=== PATIENT | female | born 1955 | race African-American/Black ===

== ENCOUNTER 2020-01-07 12:11 | Outpatient (REF) | payer MEDICARE, MEDICAID, SELFPAY ==
[2020-01-07 13:44] LABS: MANUAL DIFF FLAG NO
[2020-01-07 13:54] LABS: Basophils Percent Auto 0.5 % (0-2); Eosinophils Absolute Auto 0.3 X10*3/uL (0.0-0.4); Eosinophils Percent Auto 3.5 % (0-4); Hematocrit 39.5 % (37-47); Hemoglobin 11.8 g/dl (12.0-16.0); Imm Gran Abs Auto 0.02 X10*3/uL (0.00-0.03); Imm Gran Pct Auto 0.2 % (0.0-0.4); Mean Corpuscular HGB Conc 29.9 g/dl (31.0-35.0); Mean Corpuscular Volume 83.7 fL (80-98); Mean Platelet Volume 10.9 fL (9.4-12.3); Monocytes Absolute Auto 0.6 X10*3/uL (0.1-1.2); Monocytes Percent Auto 7.6 % (2-11); Neutrophils Absolute Auto 4.3 X10*3/uL (2.0-8.3); Neutrophils Percent Auto 52.2 % (45-73); Platelet Count 250 X10*3/uL (160-400); Red Blood Count 4.72 X10*6/uL (4.20-5.50); Red Cell Distribution Width 14.4 % (11.0-16.0); White Blood Count 8.3 X10*3/uL (4.8-10.8)
[2020-01-07 14:33] LABS: Alanine Aminotransferase 15 U/L (0-31); Albumin Level 4.3 g/dL (3.5-5.0); Alkaline Phosphatase 71 U/L (39-117); Anion Gap 9 (12-20); Aspartate Amino Transferase 17 U/L (5-31); Bilirubin Total 0.4 mg/dL (0.0-1.0); Blood Urea Nitrogen 10 mg/dL (9-16); Calcium 9.4 mg/dL (8.4-10.2); Carbon Dioxide 31 mmol/L (22-29); Chloride 104 mmol/L (96-108); Cholesterol 229 mg/dL; Estimated Glomerular Filt Rate > 60; Glucose Fasting 87 mg/dL (60-99); HDL Cholesterol 50 mg/dL; LDL Cholesterol Calculated 135 mg/dl; Potassium 4.1 mmol/l (3.3-5.1); Sodium 140 mmol/L (135-145); Total Protein 7.4 g/dL (6.5-8.0); Triglycerides 220 mg/dL
== END 2020-01-07 12:12 | disposition home or self-care (01) ==
LOC: HO.10HDL 12:11
PROVIDERS: Visit Provider Internal Medicine
DX: I10 Essential (primary) hypertension (principal); E78.00 Pure hypercholesterolemia, unspecified
CPT/HCPCS: 36415; 80053; 80061; 85025

== ENCOUNTER 2020-06-19 10:25 | Outpatient (REF) | payer MEDICARE, SELFPAY ==
[2020-06-19 14:31] LABS: Cholesterol 222 mg/dL; HDL Cholesterol 53 mg/dL; LDL Cholesterol Calculated 141 mg/dl; Triglycerides 143 mg/dL
== END 2020-06-19 10:26 | disposition home or self-care (01) ==
LOC: HO.10HDL 10:25
PROVIDERS: Visit Provider Internal Medicine
DX: I10 Essential (primary) hypertension (principal); E78.00 Pure hypercholesterolemia, unspecified
CPT/HCPCS: 36415; 80061

== ENCOUNTER 2020-10-05 09:28 | Outpatient (REF) | payer MEDICARE, SELFPAY ==
[2020-10-05 10:59] LABS: Anion Gap 12 (12-20); Blood Urea Nitrogen 12 mg/dL (9-16); Calcium 9.3 mg/dL (8.4-10.2); Carbon Dioxide 29 mmol/L (22-29); Chloride 105 mmol/L (96-108); Cholesterol 229 mg/dL; Estimated Glomerular Filt Rate > 60; Glucose Random 98 mg/dL (60-115); HDL Cholesterol 51 mg/dL; LDL Cholesterol Calculated 153 mg/dl; Potassium 4.4 mmol/L (3.3-5.1); Sodium 142 mmol/L (135-145); Triglycerides 126 mg/dL
== END 2020-10-05 09:29 | disposition home or self-care (01) ==
LOC: HO.10HDL 09:28
PROVIDERS: Visit Provider Internal Medicine
DX: E78.00 Pure hypercholesterolemia, unspecified (principal); N18.9 Chronic kidney disease, unspecified
CPT/HCPCS: 36415; 80048; 80061

== ENCOUNTER 2021-07-05 16:40 | Outpatient (REF) | payer MEDICARE, SELFPAY ==
--- NOTE | ~2021-07-05 | XR_ITS ---
EXAMINATION: XR CHEST CLINICAL INFORMATION: Cough COMPARISON: 11/19/2014 TECHNIQUE: 2 views of the chest were obtained. FINDINGS: Low lung volumes. Cardiomediastinal silhouette is unremarkable. Some areas of linear atelectasis without consolidation. No pleural effusion or pneumothorax. Exaggerated kyphotic curvature in the thoracic spine. No acute process. XR/XR chest 2V IMPRESSION: Low lung volumes. No acute cardiopulmonary process.
== END 2021-07-05 16:41 | disposition home or self-care (01) ==
LOC: HO.XRAY 16:40
PROVIDERS: PCP Internal Medicine; Visit Provider Internal Medicine
DX: I10 Essential (primary) hypertension (principal); R05.9 Cough, unspecified
CPT/HCPCS: 71046

== ENCOUNTER 2022-07-25 08:17 | Outpatient (REF) | payer MEDICARE, SELFPAY ==
[2022-07-25 10:38] LABS: Alanine Aminotransferase 18 U/L (0-31); Aspartate Amino Transferase 19 U/L (5-31); Cholesterol 243 mg/dL; HDL Cholesterol 54 mg/dL; LDL Cholesterol Calculated 166 mg/dl; Triglycerides 117 mg/dL
== END 2022-07-25 08:18 | disposition home or self-care (01) ==
LOC: HO.10HDL 08:17
PROVIDERS: Visit Provider Internal Medicine
DX: I10 Essential (primary) hypertension (principal); E78.00 Pure hypercholesterolemia, unspecified
CPT/HCPCS: 36415; 80061; 82550; 84450; 84460

== ENCOUNTER 2022-07-25 08:33 | Outpatient (REF) | payer MEDICARE, SELFPAY ==
--- NOTE | ~2022-07-25 | MM_ITS ---
EXAMINATION: MM SCREENING DIGITAL BREAST TOMOSYNTHESIS, BILATERAL CLINICAL INFORMATION: Screening. Asymptomatic. The lifetime risk of breast cancer based on the Tyrer-Cuzick Model is 4%. COMPARISON: Mammography: August 24, 2018 and studies dating back to May 05, 2012 TECHNIQUE: Digital breast tomosynthesis is performed in both the craniocaudal and mediolateral oblique views along with computer-aided detection (CAD). Synthesized 2D images are generated from the tomosynthesis. FINDINGS: There are scattered areas of fibroglandular density (ACR BI-RADS breast composition Category b). There are no significant masses, abnormal calcifications, or other abnormalities. MM/MM tomosynthesis screening BI IMPRESSION: No significant changes ASSESSMENT: BI-RADS 1: Negative RECOMMENDATION: Routine annual mammography screening. This patient's information was entered into a reminder system with a target due date for their next mammogram.
--- NOTE | ~2022-07-25 | MM_ITS ---
EXAMINATION: BONE DENSITOMETRY CLINICAL INDICATION: Menopause. COMPARISON: None (current study represents initial baseline exam). TECHNIQUE: Using a Pict DXA System (software version: 13.1) manufactured by [employer], dual-energy x-ray absorptiometry was performed of the lumbar spine and left hip. The images are of good technical quality. Summary results are attached. FINDINGS: AP SPINE L1-L4: BMD 1.300 g/cm2, Z-score 1.2, T-score 1.0, normal. LEFT FEMUR, NECK: BMD 1.195 g/cm2, Z-score 1.3, T-score 1.1, normal. LEFT FEMUR, TOTAL: BMD 1.289 g/cm2, Z-score 2.1, T-score 2.2, normal. IDENTIFIED RISK FACTORS: Menopause. HISTORY OF FRACTURE: None listed. MEDICATIONS: Multivitamin, vitamin D. MM/XR DEXA axial skeleton IMPRESSION: 1. DIAGNOSIS: Normal bone density based on the lowest T-score value of 1.0 in the lumbar spine applying World Health Organization criteria. 2. 10-YEAR FRACTURE RISK PREDICTION, FRAX: According to the guidelines, FRAX calculation should only be performed on patients in the osteopenia bone density category. Therefore, FRAX was not performed on this patient. 3. Treatment Recommendations: NOF guidelines recommend consideration for treatment in postmenopausal women and men age 50 and older presenting with the following: -A hip or vertebral (clinical or morphometric) fracture. -T-score less than or equal to -2.5 at the femoral neck or spine after appropriate evaluation to exclude secondary causes. -Low bone mass at the hip or spine and a 10-year fracture probability by FRAX of greater than or equal to 3% for hip fracture or greater than or equal to 20% for major osteoporotic fracture based on the [place] adapted WHO algorithm. 4. Other Recommendations: All treatment decisions require clinical judgment and consideration of individual patient factors, including patient preferences, comorbidities, previous drug use, risk factors not captured in the FRAX model (e.g. frailty, falls, vitamin D deficiency, increased bone turnover, interval significant decline in bone density) and possible under or overestimation of fracture risk by FRAX. FUTURE SCAN RECOMMENDATION: People with diagnosed cases of osteoporosis or at high risk for fracture should have regular bone mineral density tests. For patients eligible for Medicare, routine testing is allowed once every 2 years. The testing frequency can be increased to one year for patients who have rapidly progressing disease, those who are receiving or discontinuing medical therapy to restore bone mass, or have additional risk factors.
== END 2022-07-25 08:34 | disposition home or self-care (01) ==
LOC: HO.MAMMO 08:33
PROVIDERS: PCP Internal Medicine; Visit Provider Internal Medicine
DX: Z12.31 Encounter for screening mammogram for malignant neoplasm of breast (principal); Z13.820 Encounter for screening for osteoporosis; Z78.0 Asymptomatic menopausal state
CPT/HCPCS: 77063; 77067; 77080

== ENCOUNTER 2023-07-04 10:22 | Outpatient (REF) | payer MEDICARE, SELFPAY ==
[2023-07-04 12:20] LABS: Anion Gap 13 (12-20); Blood Urea Nitrogen 10 mg/dL (9-16); Calcium 9.6 mg/dL (8.4-10.2); Carbon Dioxide 27 mmol/L (22-29); Chloride 108 mmol/L (96-108); Estimated Glomerular Filt Rate > 60; Glucose Random 108 mg/dL (60-115); Potassium 4.1 mmol/L (3.3-5.1); Sodium 144 mmol/L (135-145)
== END 2023-07-04 10:23 | disposition home or self-care (01) ==
LOC: HO.10HDL 10:22
PROVIDERS: Visit Provider Internal Medicine
DX: I10 Essential (primary) hypertension (principal)
CPT/HCPCS: 36415; 80048

== ENCOUNTER 2024-03-05 10:14 | Outpatient (REF) | payer MEDICARE, SELFPAY ==
[2024-03-05 11:49] LABS: MANUAL DIFF FLAG NO
[2024-03-05 11:55] LABS: Basophils Percent Auto 0.5 % (0-2); Eosinophils Absolute Auto 0.3 X10*3/uL (0.0-0.4); Eosinophils Percent Auto 4.2 % (0-4); Hematocrit 38.4 % (37.0-47.0); Imm Gran Abs Auto 0.02 X10*3/uL (0.00-0.03); Imm Gran Pct Auto 0.3 % (0.0-0.4); Lymphocytes Absolute Auto 2.3 X10*3/uL (1.2-4.9); Lymphocytes Percent Auto 30.8 % (20-40); Mean Corpuscular HGB Conc 31.3 g/dl (31.0-35.0); Mean Corpuscular Hemoglobin 25.4 pg (27.0-33.0); Mean Corpuscular Volume 81.4 fL (80.0-98.0); Mean Platelet Volume 10.7 fL (9.4-12.3); Monocytes Absolute Auto 0.5 X10*3/uL (0.1-1.2); Monocytes Percent Auto 6.4 % (2-11); Neutrophils Absolute Auto 4.3 x10*3/uL (2.0-8.3); Neutrophils Percent Auto 57.8 % (45-73); Platelet Count 233 X10*3/uL (160-400); Red Blood Count 4.72 X10*6/uL (4.20-5.50); Red Cell Distribution Width 14.6 % (11.0-16.0); White Blood Count 7.4 X10*3/uL (4.8-10.8)
[2024-03-05 12:06] LABS: Estimated Average Glucose 134 mg/dL; Hemoglobin A1C 145.1446 umol/L; Hemoglobin A1c % 6.3 % (<6.0); Total Hemoglobin (HGBA1C) 3173.2332 umol/L
[2024-03-05 12:08] LABS: Albumin Level 4.4 g/dL (3.5-5.0); Anion Gap 11 (12-20); Aspartate Amino Transferase 21 U/L (5-31); Bilirubin Total 0.5 mg/dL (0.0-1.0); Blood Urea Nitrogen 11 mg/dL (9-16); Calcium 9.4 mg/dL (8.4-10.2); Carbon Dioxide 29 mmol/L (22-29); Chloride 106 mmol/L (96-108); Cholesterol 153 mg/dL (<200); Estimated Glomerular Filt Rate > 60; Glucose Fasting 114 mg/dL (60-99); HDL Cholesterol 51 mg/dL (>40); LDL Cholesterol Calculated 92 mg/dL (<100); Potassium 3.9 mmol/L (3.3-5.1); Sodium 142 mmol/L (135-145); Total Protein 7.6 g/dL (6.5-8.0); Triglycerides 52 mg/dL (<150)
[2024-03-05 12:23] LABS: Alanine Aminotransferase 19 U/L (0-31); Alkaline Phosphatase 73 U/L (39-117)
[2024-03-05 12:31] LABS: Vitamin D 25-OH Total 36.8 ng/mL (>30)
== END 2024-03-05 10:15 | disposition home or self-care (01) ==
LOC: HO.10HDL 10:14
PROVIDERS: Visit Provider Internal Medicine
DX: I10 Essential (primary) hypertension (principal); E78.00 Pure hypercholesterolemia, unspecified; R73.03 Prediabetes
CPT/HCPCS: 36415; 80053; 80061; 82306; 83036; 85025

== ENCOUNTER 2024-04-02 08:19 | Day surgery (SDC) | payer MEDICARE, SELFPAY ==
--- NOTE | 2024-04-01 10:55 | P.CONAN_ITS ---
Documented by User: Kandice Corona NP 04/01/24 10:56 HPI - Anesthesia Eval Consult details Narrative: 69yo F for Colonoscopy [facility] Past Medical History Medical History Renal calculi Elevated cholesterol HTN (hypertension) Surgical History Surgical History H/O colonoscopy Social History Social History Household Members: Spouse Patient Tobacco Use Status: Never used Tobacco Use of substances other than those prescribed or required for medical reasons: No Are you DNR?: No Advance Directives: No Advance Directives Information Provided: Yes Meds Allergies Allergy/AdvReac Type Severity Reaction Status Date / Time No Known Drug Allergies Allergy Unknown NONE Verified 04/02/24 09:09 [NO KNOWN DRUG ALLERGIES] Home Medications ?Medication ?Instructions ?Recorded ?Confirmed ?Last Taken ?Type atorvastatin 10 mg tablet 10 mg PO DAILY 03/31/24 04/02/24 Unknown History cholecalciferol (vitamin D3) 50 50 mcg PO DAILY 03/31/24 04/02/24 Unknown History mcg (2,000 unit) capsule (Vitamin D3) lisinopril 10 mg tablet 10 mg PO DAILY 03/31/24 04/02/24 04/02/24 07:45 History Exam Height,Weight and Vital Signs: Weight 85.729 kg Pertinent Lab Results Pertinent Lab Results: Laboratory Tests 03/05/24 10:20 WBC 7.4 Hgb 12.0 Hct 38.4 Plt Count 233 Sodium 142 Potassium 3.9 Chloride 106 Carbon Dioxide 29 BUN 11 Creatinine 0.81 Assessment and Plan Assessment Anesthesia Assessment: Chart Reviewed Documented by User: Shama Ch MD 04/02/24 10:34 [facility] Past Medical History Medical History Renal calculi Elevated cholesterol HTN (hypertension) Family History Family history of problems with anesthesia: No Surgical History Surgical History H/O colonoscopy History of Problems with Anesthesia: No Social History Social History Household Members: Spouse Patient Tobacco Use Status: Never used Tobacco Use of substances other than those prescribed or required for medical reasons: No Are you DNR?: No Advance Directives: No Advance Directives Information Provided: Yes Meds Allergies Allergy/AdvReac Type Severity Reaction Status Date / Time No Known Drug Allergies Allergy Unknown NONE Verified 04/02/24 09:09 [NO KNOWN DRUG ALLERGIES] Home Medications ?Medication ?Instructions ?Recorded ?Confirmed ?Last Taken ?Type atorvastatin 10 mg tablet 10 mg PO DAILY 03/31/24 04/02/24 Unknown History cholecalciferol (vitamin D3) 50 50 mcg PO DAILY 03/31/24 04/02/24 Unknown History mcg (2,000 unit) capsule (Vitamin D3) lisinopril 10 mg tablet 10 mg PO DAILY 03/31/24 04/02/24 04/02/24 07:45 History Exam Height,Weight and Vital Signs: Weight 85.729 kg Height 5 ft 3 in Weight 83.461 kg Vital Signs Temp Pulse Resp BP Pulse Ox O2 Del Method 04/02/24 09:17 98.4 F 76 16 158/75 H 97 Room Air Pertinent Lab Results Pertinent Lab Results: Laboratory Tests 03/05/24 10:20 WBC 7.4 Hgb 12.0 Hct 38.4 Plt Count 233 Sodium 142 Potassium 3.9 Chloride 106 Carbon Dioxide 29 BUN 11 Creatinine 0.81 Airway Mallampati Class: II TM Dist: >3cm Neck ROM: Full Partial: Upper Loose/Missing/Broken Teeth: Yes (Many missing teeth. Chipped top front tooth.Denies loose teeth) Heart: RRR Lungs: CTAB Assessment and Plan Assessment Anesthesia Assessment: Anesthesia Plan Discussed and Chart Reviewed Final Anesthetic Review Family History of Problems with Anesthesia: No History of Problems with Anesthesia: No NPO: Yes ASA Class: II Final Preanesthetic Review: No Changes in Pt Med Stat, Meds/Allgs Chart Reviewed, Consent Obtained/Reviewed and Anes Risks/Benef Reviewed Patient Risk: Low Procedure Risk: Low Assessment/Block/Sedation in SS: Assess/Block/Sedation-SS Anesthetic Plan Anesthetic Plan: TIVA Disposition: Standard PACU
[2024-04-02 09:10] VITALS: BMI 32.6
[2024-04-02 09:17] VITALS: BP 158/75; PULSE 76; RESP 16; TEMP 36.9; O2SAT 97
[2024-04-02] MEDS: Lactated Ringers 1,000 ML 100 ML IVCONT (09:43)
[2024-04-02 10:45] VITALS: BP 96/49; PULSE 66; RESP 18; TEMP 36.8; O2SAT 95
--- NOTE | 2024-04-02 10:45 | PM.OP ---
Brief Operative Note Date of Service: 04/02/24 Pre-op diagnosis: Screening Post-op diagnosis: other (Polyp) Procedure: Colonoscopy to the cecum and TI with cold snare polypectomy Surgeon: Marco Self MD Anesthesia: MAC Was an Collections Specialist used for this Procedure?: No Estimated blood loss (mL): 2.0 Pathology: none sent Condition: stable Disposition: PACU
[2024-04-02 11:00] VITALS: BP 109/52; PULSE 66; RESP 18; O2SAT 95
--- NOTE | 2024-04-02 11:14 | OP_ITS ---
DATE OF SERVICE: 04/02/2024 SURGEON: Marco Self MD INDICATIONS: The patient presents for evaluation of colorectal cancer screening. Full consent has been obtained from her for this, including risks of bleeding and perforation. PREOPERATIVE DIAGNOSIS: Colorectal cancer screening. POSTOPERATIVE DIAGNOSIS: PROCEDURE PERFORMED: Colonoscopy to the cecum and terminal ileum with cold snare polypectomy. ESTIMATED BLOOD LOSS: COMPLICATIONS: ANESTHESIA: Monitored anesthesia care. ASSISTANTS: SPECIMENS: POSTOPERATIVE DIAGNOSES: Colorectal cancer screening, small colon polyp, diverticulosis, and internal hemorrhoids. DESCRIPTION OF PROCEDURE: The patient was placed in the left lateral decubitus position. The digital rectal exam revealed no abnormalities. The Olympus video pediatric colonoscope was entered into the rectum and advanced easily to the cecum. Once in the cecum, I did identify normal-appearing cecal pouch with appendiceal orifice and a normal-appearing ileocecal valve. The terminal ileum was cannulated and appeared normal. The scope was withdrawn back in the colon. The entire cecum and ileocecal valve appeared normal. Scope was slowly withdrawn assessing all mucosal surfaces carefully. Preparation was excellent. In the ascending colon was an approximately 5 or 6 mm grossly adenomatous polyp, which was removed by cold snare polypectomy but not recovered. The polypectomy site appeared clean, without any sign of residual polyp nor significant bleeding. I did not visualize any other polyps, colitis, nor angiodysplasia. There was a mild amount of sigmoid diverticulosis. In the rectum, scope was retroflexed visualizing internal hemorrhoids but no other pathology. The rectal mucosa appeared normal. The scope was straightened and withdrawn from the patient. She tolerated the procedure well and was returned to the recovery area in stable condition. IMPRESSION: 1. Colon polyp. 2. Diverticulosis. 3. Internal hemorrhoids. PLAN: Although a specimen was not recovered for a pathology, I would recommend a repeat colonoscopy in 5 years based on the appearance of the polyp. She will otherwise see me on a p.r.n. basis. MD NIRAV Veras/LA / [id number]
== END 2024-04-02 11:54 | disposition home or self-care (01) ==
PROVIDERS: PCP Internal Medicine; Visit Provider Internal Medicine
PROC: 0DJD8ZZ Inspection of Lower Intestinal Tract, Via Natural or Artificial Opening Endoscopic (ICD-10-PCS; CPT 45378; principal; 2024-04-02 09:30)
DX: Z12.11 Encounter for screening for malignant neoplasm of colon (principal); D12.2 Benign neoplasm of ascending colon; K57.30 Diverticulosis of large intestine without perforation or abscess without bleeding; K64.8 Other hemorrhoids; I10 Essential (primary) hypertension; E78.5 Hyperlipidemia, unspecified; Z87.442 Personal history of urinary calculi; Z79.02 Long term (current) use of antithrombotics/antiplatelets; Z79.899 Other long term (current) drug therapy
CPT/HCPCS: 45385; J2003; J2704

== ENCOUNTER 2024-07-05 14:34 | Outpatient (AMB) | payer MEDICARE, SELFPAY ==
[2024-07-05 14:36] VITALS: BP 138/76; PULSE 74; TEMP 36.5; O2SAT 98; BMI 32.2
--- NOTE | 2024-07-05 14:36 | A.OFFPC_ITS ---
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 Accompanied by: Spouse Allergies No Known Drug Allergies [NO KNOWN DRUG ALLERGIES] Allergy (Unknown, Verified 07/05/24 15:37) NONE Medication List - Last Reconciled 07/05/24 by Herrera Mosley MD atorvastatin 10 mg PO DAILY cholecalciferol (vitamin D3) (Vitamin D3) 50 mcg PO DAILY hydrochlorothiazide 25 mg PO DAILY losartan 50 mg PO DAILY Tobacco use date assessed: 07/05/24 Fall risk assessment: No Falls in past year Last assessed Fall Risk: 07/05/24 Dental Screening Dental Screen Date: 07/05/24 Did you have a dental visit in the last 12 months?: Yes Did you have a dental problem in the last 6 months where you did not have access to dental care?: No HPI Routine HPI Details 69-year-old female presents to the offic e to discuss her chronic medical conditions. Patient gives history of hypertension. She has been reporting elevated blood pressures at home. They range between 170-160 systolic. Associated headaches and pain in the frontal area of the face. Patient currently takes lisinopril and would like the medication changed as she believes the medication is thinning or hair. No nausea or vomiting. Her niece recently had a cerebral bleed and the treating physician wanted her family members to be screened for cerebral aneurysm. [facility] Medical History Renal calculi Elevated cholesterol HTN (hypertension) Surgical History H/O colonoscopy (04/02/24) Family History Mother No problems noted. Father No problems noted. Social History Household Members: Spouse Housing: House Patient Tobacco Use Status: Former Tobacco user e-Cigarette/Vaping Use: Former Use service: No Current occupational status: employed Cognitive needs: No Hearing needs: No Vision needs: Yes (reading) Questionnaire PHQ-9 Over the last 2 weeks, how often have you been bothered by any of the following problems? 1. Little interest or pleasure in doing things: not at all 2. Feeling down, depressed, or hopeless: not at all 3. Trouble falling or staying asleep, or sleeping too much: not at all 4. Feeling tired or having little energy: not at all 5. Poor appetite or overeating: not at all 6. Feeling bad about yourself - or that you are a failure or have let yourself or your family down: not at all 7. Trouble concentrating on things, such as reading the newspaper or watching television: not at all 8. Moving or speaking so slowly that other people could have noticed. Or the opposite - being so fidgety or restless that you have been moving around a lot more than usual: not at all 9. Thoughts that you would be better off or of hurting yourself in some way: not at all Total score: 0 Depression Screening Interpretation: Negative Depression Screening Done: Yes Source: Developed by Drs. Marco Luna, Sue Siddiqui, Luis Chapman and colleagues, with an educational alejandro from [employer]. Thrive Questionnaire Date Thrive assessed: 07/05/24 I am a: Patient Within the past 12 months, did the food you bought not last and you didn't have the money to get more?: Never true Within the past 12 months, did you worry whether your food would run out before you got money to buy more?: Never true Do you have trouble paying for medicines?: No Do you have trouble getting transportation to medical appointments?: No Do you have trouble paying your heating and electricity bill?: No Do you have trouble taking care of your child, family member or friend?: No Do you have trouble with day-to-day activities such as bathing, preparing meals, shopping, managing finances, etc.?: No Are you currently unemployed and looking for a job?: No Are you interested in more education?: No Currently or been in a relationship where the following occur: No concerns reported THRIVE Score: 0 AUDIT C Alcohol Use Questionnaire (AUDIT-C) 1. How often do you have a drink containing alcohol?: Never 3. How often do you have six or more drinks on one occasion?: Never Total Score: 0 BRYSON-7 AMB Questionnaire BRYSON-7 Date BRYSON - 7 assessed: 07/05/24 Feeling nervous, anxious, or on edge: 0 = Not at all Not being able to stop or control worryin = Not at all Worrying too much about different things: 0 = Not at all Trouble relaxin = Not at all Being so restless that it is hard to sit still: 0 = Not at all Becoming easily annoyed or irritable: 0 = Not at all Feeling afraid as if something awful might happen: 0 = Not at all Total BRYSON-7 score (0-4 normal; 5-9 mild; 10-14 moderate; 15-21 severe): 0 Source: Developed by Drs. Marco Luna, Sue Siddiqui, Luis Chapman and colleagues, with an educational alejandro from [employer]. Physical exam (Primary Care) Vital Signs: Last Vital Signs Temp 97.7 F 07/05/24 14:36 Pulse 74 07/05/24 14:36 BP 138/76 07/05/24 14:36 Pulse Ox 98 07/05/24 14:36 Oxygen Delivery Method Room Air 07/05/24 14:36 Care Plan Goal for BP management: Blood pressure in range. BMI result Body Mass Index 32.2 BMI Assessment/Plan discussion: High Tobacco/Smoking Status: Tobacco use Status Tobacco use date assessed 07/05/24 07/05/24 14:38 Patient Tobacco Use Status Former Tobacco user 07/05/24 15:18 e-Cigarette/Vaping Use Former Use 07/05/24 15:18 PHQ-9: PHQ-9 Score PHQ-9: Total score 0 07/05/24 15:18 Depression Screening Interpretation: Negative Thrive Assessment: Date of Thrive Assessment Date Thrive assessed 07/05/24 07/05/24 14:38 Currently or been in a relationship where the following occur: No concerns reported Advance Care Planning discussion: Exists, not on file Date of discussion: 07/05/24 Who was present: Patient, Forms completed: Health Care Proxy Const General: cooperative and healthy appearing Nutritional Appearance: well nourished Orientation/consciousness: patient oriented x3 Limitations: no limitations HENMT Head: Yes normal to inspection Eyes General: appearance normal, both eyes and all related structures Neck Neck: Yes normal visual inspection Chest Chest palpation & inspection: normal palpation of entire chest wall Resp Effort & Inspection: normal respiratory effort Neuro General: patient oriented x3 Coding Level of Care Code New Pt Level 4 (77396) Complex EM visit Add On G2211 Diagnoses HTN (hypertension) I10 Elevated cholesterol E78.00 Aneurysm I72.9 Additional Codes Vital Signs *Quality* - Advance Care Planning discussion: Exists, not on file ([id number]) Assessment & Plan Assessment & Plan (1) HTN (hypertension): Code(s): I10 - Essential (primary) hypertension Category: Medical Plan: Blood pressure medications have been changed. Blood work has been ordered. Lisinopril has been discontinued. Combination of losartan and hydrochlorothiazide. (2) Elevated cholesterol: Code(s): E78.00 - Pure hypercholesterolemia, unspecified Category: Medical Plan: Fasting blood work has been ordered. (3) Aneurysm: Code(s): I72.9 - Aneurysm of unspecified site Plan: CT angiogram has been ordered. Orders: Orders Complete Blood Count no Diff Today E78.00 - Pure hypercholesterolemia, unspecified, I10 - Essential (primary) hypertension CT angio head Today I72.9 - Aneurysm of unspecified site Basic Metabolic Panel Today E78.00 - Pure hypercholesterolemia, unspecified, I10 - Essential (primary) hypertension Lipid Panel Today E78.00 - Pure hypercholesterolemia, unspecified, I10 - Essential (primary) hypertension Liver Panel Today E78.00 - Pure hypercholesterolemia, unspecified, I10 - Essential (primary) hypertension Thyroid Stimulating Hormone Today E78.00 - Pure hypercholesterolemia, unspecified, I10 - Essential (primary) hypertension UA and rflx microscopic Today E78.00 - Pure hypercholesterolemia, unspecified, I10 - Essential (primary) hypertension MM screening mammo BI Today Z12.31 - Encounter for screening mammogram for malignant neoplasm of breast Medications: New losartan 50 mg PO DAILY 90 tabs 1RF hydrochlorothiazide 25 mg PO DAILY 90 tabs 1RF
--- OUTSIDE RECORDS SUMMARY | 2024-07-05 16:57 | XMS_ITS | Patient Health Record ---
Author Organization [facility] Address [address] [place] [phone] Care Team Providers Care Senior Bioinformatics Specialist Name Role Phone Milton Esquivel MD Primary Care Provider Marco Bryant Unavailable [phone] Allergies No Known Allergies Reason For Referral No Information Medications Medication SIG (Take, Route, Frequency, Duration) Notes Start Date End Date Status Vitamin D 50 MCG (1999) 1 tablet Oral ly Once a day for 30 day(s) Active Atorvastatin Calcium 10 MG 1 tablet Oral ly Once a day for 30 day(s) Active Lisinopril 10 MG 1 tablet Orally Once a day for 30 day(s) Active Social History Tobacco Use: Social History Observation Description Date Details (start date - stop date) Never Smoker NA - NA Tobacco Use/Smoking Question Answer Notes Patient is a nonsmoker Alcohol Screen Question Answer Notes Did you have a drink containing alcohol in the p ast year? No Points 0 Interpretation Negative Section Notes: Nonsmoker; no sig alcohol From [place] originally Problems Problem Type SNOMED Code ICD Code Onset Dates Problem Status W/U Status Risk Notes Problem Colon cancer screening (145746216) Colon cancer screening (Z12.11) Active confirmed Problem Pre-procedure evaluation check (952485184) Encounter for other preprocedural examination (Z01.818) Active confirmed Problem Diverticular disease of colon (313848941) Diverticulosis of large intestine without perforation or abscess without bleeding (K57.30) Active confirmed Vital Signs Heart Rate 80 /min 12/02/2023 Temperature 98.6 degrees Fahrenheit 12/02/2023 Blood pressure diastolic 00 mm Hg 12/02/2023 Height 5 in 12/02/2023 Blood pressure systolic 00 mm Hg 12/02/2023 Weight 189 lbs 12/02/2023 BMI 5,314.68 kg/m2 12/02/2023 Encounters Encounter Location Date Provider Diagnosis [facility] [address] [place], [place] [id number] 04/02/2024 Marco Self Colon cancer screeni ng Z12.11 ; Colon polyps K63.5 ; Diverticulosis of large intestine without perforation or abscess without bleeding K57.30 and Other hemorrhoids K64.8 [facility] [address] [place] [phone] 12/02/2023 Marco Self Colon cancer screeni ng Z12.11 and Encounter for other preprocedural examination Z01.818 [facility] [address] [place] [phone] 12/08/2023 Marco Self [facility] [address] [place] [phone] 12/02/2023 Marco Self Assessments Encounter Date Diagnosis (ICD Code) Assessment Notes Treatment Notes Treatment Clinical Notes Section Notes 04/02/2024 Colon cancer screening (ICD-10 - Z12.11) 04/02/2024 Colon polyps (ICD-10 - K63.5) 12/02/2023 Colon cancer screening (ICD-10 - Z12.11) Overall, Tamiko appears quite well. Given her age, excellent clinical appearance, and her last colonoscopy being over 10 years ago, I did recommend a followup colonoscopy for further screening purposes. We did review the rationale for that regard to colon cancer prevention. Full consent was obtained for this, including risks of bleeding and perforation. The procedure will be done with monitored anesthesia care. Tamiko was very comfortable with this plan. Thank you again for allowing me to participate in Tamiko's care. I shall continue to keep you advised of her progress. 12/02/2023 Encounter for other preprocedural examination (ICD-10 - Z01.818) Overall, Tamiko appears quite well. Given her age, excellent clinical appearance, and her last colonoscopy being over 10 years ago, I did recommend a followup colonoscopy for further screening purposes. We did review the rationale for that regard to colon cancer prevention. Full consent was obtained for this, including risks of bleeding and perforation. The procedure will be done with monitored anesthesia care. Tamiko was very comfortable with this plan. Thank you again for allowing me to participate in Tamiko's care. I shall continue to keep you advised of her progress. 04/02/2024 Diverticulosis of large intestine without perforation or abscess without bleeding (ICD-10 - K57.30) 04/02/2024 Other hemorrhoids (ICD-10 - K64.8) Plan Of Treatment Future Test Test Name Order Date COLONOSCOPY 12/02/2023 Insurance Providers Payer Name Payer Address Payer Phone Subscriber Number Group Number Insured Name Patient Relationship to Insured Coverage Start Date Coverage End Date [facility] [address] [place] [phone] [id number] TAMIKO SERRANO Self - patient is the insured Medical (General) History Medical History History ICD Code Kidney stones Hypertension Negative screening colonoscopy > 10 year s ago Denies [place],DM,CVA,Lung disease,renal dise ase Hyperlipidemia Surgical History Surgery Date(Month/Year)
--- OUTSIDE RECORDS SUMMARY | 2024-07-05 16:57 | XMS_ITS ---
Author Organization [facility] Address [address] [place] [phone] Care Team Providers Care Discharge Planner Name Role Phone Milton Esquivel MD Primary Care Provider Marco Bryant [phone] Encounters Encounter Location Date Provider Diagnosis [facility] [address] [place] [phone] 12/02/2023 Marco Self Plan Of Treatment No Information Progress Notes * NADIRA SERRANODOB: (69 yo F)Acc No.[id number]:12/02/2023 Patient:?NADIRA SERRANO :1955???Age:68 Y???Sex:Female Address:[address] [place] [address], [address] Subjective: * Chief Complaints: * ??? * Medical History:? * Surgical History:? * Hospitalization/Major Diagno stic Procedure:? * Medications:? Objective: Assessment: Plan: * Treatment: * Procedure Codes:? * Preventive Medicine:? ??Urinary Incontinence:?Urinary Incontinence?Assessment:?Present,?Plan of care documented:?Yes,?Type of plan of care:?Addressing co-morbid factors.? * true * Date:? Generated for Annie canseco/Yosvany/eTvinaysmzach on:?07/05/2024 04:57 PM EDT
--- OUTSIDE RECORDS SUMMARY | 2024-07-05 16:57 | XMS_ITS | Clinical Summary ---
Author Organization [address] [place] [address] [place] [phone] Phone Care Team Providers Care Powerhouse Electrician Apprentice Name Role Phone Milton Esquivel MD Primary Care Provider [phone] Allergies No known active allergies Medications atorvastatin (LIPITOR) 10 mg tablet Take 1 tablet (10 mg total) by mouth 1 (one) time each day. 03/22/2024 Active lisinopriL (PRINIVIL,ZESTRI L) 10 mg tablet Take 1 tablet (10 mg total) by mouth 1 (one) time each day. 03/04/2024 Active Encounters Date Type Department Care Team Description 05/16/2024 2:00 PM EST Office Visit [facility] - [address] [phone] Bernardo Quesada PA Costochondritis (Primary Dx) from Last 3 Months Social History Tobacco Use Types Packs/Day Years Used Date Smoking Tobacco: Never Assessed Comments Unknown Sex and Gender Information Value Date Recorded Sex Assigned at Not on file Legal Sex Female 12:05 PM EST Gender Identity Not on file Sexual Orientation Not on file Last Filed Vital Signs Vital Sign Reading Time Taken Comments Blood Pressure 164/84 05/16/2024 2:21 PM EST Pulse 70 05/16/2024 2:00 PM EST Temperature 36.7 ??C (98 ??F) 05/16/2024 2:00 PM EST Respiratory Rate - - Oxygen Saturation 97% 05/16/2024 2:00 PM EST Inhaled Oxygen Concentration - - Weight - - Height - - Body Mass Index - - Plan of Treatment Health Maintenance Due Date Last Done Comments Breast Cancer Screening 1955 DTaP,Tdap,and Td Vaccines (1 - Tdap) 1974 Pneumococcal Vaccine: 50+ Years (1 of 1 - PCV) 2005 Zoster Vaccines (1 of 2) 2005 COVID-19 Vaccine (4 - 2023-2 5 season) 2023 02/22/2021, 07/09/2020, 06/16/2020 Colorectal Cancer Screening: Colonoscopy 05/16/2024 Depression Screening 05/16/2024 Falls Risk Assessment 05/16/2024 Hepatitis C Screening 05/16/2024 Medicare Annual Wellness Visit 05/16/2024 Osteoporosis Screening (Bone Density Screening) 05/16/2024 Social Influencers of Health Screening 05/16/2024 Influenza Vaccine (Season Ended) 2024 RSV Immunization Adult Patients (1 - 1-dose 75+ series) 2030 HIB Vaccines Aged Out No longer eligi ble based on patient's age to complete this topic HPV Vaccines Aged Out No longer eligi ble based on patient's age to complete this topic Hepatitis A Vaccines Aged Out No long er eligible based on patient's age to complete this topic Hepatitis B Vaccines Aged Out No long er eligible based on patient's age to complete this topic IPV Vaccines Aged Out No longer eligi ble based on patient's age to complete this topic MMR Vaccines Aged Out No longer eligi ble based on patient's age to complete this topic Meningococcal ACWY Vaccine Aged Out N o longer eligible based on patient's age to complete this topic Meningococcal B Vaccine Aged Out No l onger eligible based on patient's age to complete this topic RSV Immunization Patients Under 20 months Aged Out No longer eligible b ased on patient's age to complete this topic Varicella Vaccines Aged Out No longer eligible based on patient's age to complete this topic Procedures Procedure Name Priority Date/Time Associated Diagnosis Comments ECG 12-LEAD Routine 05/16/2024 3:01 PM EST Costochondritis from Last 3 Months Results * ECG 12 lead (05/16/2024 3:01 PM EST) us Bernardo BROWN ECG ORDERABLES Final Resu lt from Last [address] [address] MEDICARE ADVANTAGE Care Teams Powerhouse Electrician Apprentice Relationship Specialty Start Date End Date Milton Esquivel MD [address] [place] [address] Dr Coelho [address] [place] [address] MD PCP - General Internal Medicine 05/16/24
--- OUTSIDE RECORDS SUMMARY | 2024-07-05 16:57 | XMS_ITS | Clinical Summary ---
Author Organization [facility] Address [address] [place] [address] Care Team Providers Care Tar Worker Name Role Phone Unavailable Primary Care Provider Unavailabl e Source Comments PLEASE NOTE, if this patient is a minor, it may be UNLAWFUL to discuss sensitive information that is contained in these records (such as FAMILY PLANNING, MENTAL HEALTH or SUBSTANCE ABUSE) with the minor patient's parent or other person without the patient's specific authorization.[facility] Allergies No known active allergies Medications No known medications Active Problems No known active problems Social History Tobacco Use Types Packs/Day Years Used Date Smoking Tobacco: Never Smokeless Tobacco: Never Tobacco Cessation:Counseling Given: Not Answered Social Connections Answer Date Recorded Connectedness 0 12/08/2023 Financial Resource Strain Answer Date R ecorded Financial Resource Strain 0 2023 Stress Answer Date Recorded Stress 0 09/01/2023 Physical Activity Answer Date Recorded Physical Activity 0 09/01/2023 Food Insecurity Answer Date Recorded Food 0 12/18/2023 Transportation Needs Answer Date Record ed Transportation 0 09/01/2023 Housing Stability Answer Date Recorded Housing 0 09/01/2023 Safety and Environment Answer Date Rene rded Safety 0 09/01/2023 Utilities Answer Date Recorded Utilities 0 09/01/2023 Employment Answer Date Recorded Stress 0 12/08/2023 Comments Unknown Sex and Gender Information Value Date Recorded Sex Assigned at Not on file Legal Sex Female 7:48 AM PDT Gender Identity Not on file Sexual Orientation Not on file Last Filed Vital Signs Vital Sign Reading Time Taken Comments Blood Pressure 151/79 09/10/2023 2:22 PM EDT Pulse 82 09/10/2023 2:22 PM EDT Temperature - - Respiratory Rate - - Oxygen Saturation - - Inhaled Oxygen Concentration - - Weight - - Height - - Body Mass Index - - Plan of Treatment Health Maintenance Due Date Last Done Comments Diabetes Screening 1955 Hepatitis C Screening 1955 Lipid Screening 1955 Imm-DTaP/Tdap/Td (1 - Tdap) 1974 Breast Cancer Screening (Mammogram) 1995 CT Colonography 01/03/2000 Colonoscopy 01/03/2000 Colorectal Cancer Screening 01/03/2000 FIT/gFOBT 01/03/2000 Fecal DNA 01/03/2000 Flexible Sigmoidoscopy 01/03/2000 Imm-Pneumococcal 65+ (1 of 1 - PCV) 2005 Imm-Zoster, Recombinant (1 of 2) 2005 Bone Density Screening 01/03/2020 Falls Prevention 01/03/2020 [id number] (1 - season) 2023 Imm-Influenza (#1) 2023 Alcohol and Drug Screen 03/24/2024 Depression Annual Screen 03/24/2024 Tobacco Screening 09/04/2024 09/05/2023 Hypertension Screening (#1) 09/09/2024
--- OUTSIDE RECORDS SUMMARY | 2024-07-05 16:58 | XMS_ITS ---
Author Organization [facility] Address [address] [place] [phone] Care Team Providers Care Headliner Installer Name Role Phone Milton Esquivel MD Primary Care Provider Marco Bryant [phone] Encounters Encounter Location Date Provider Diagnosis [facility] [address] [place] [phone] 12/08/2023 Marco Self Plan Of Treatment No Information Progress Notes * NADIRA SERRANODOB: (69 yo F)Acc No.[id number]:12/08/2023 Patient:?NADIRA SERRANO :1955???Age:68 Y???Sex:Female Address:[address] [place] [address], [phone] Subjective: * Chief Complaints: * ??? * Medical History:? * Surgical History:? * Hospitalization/Major Diagno stic Procedure:? * Medications:? Objective: Assessment: Plan: * Treatment: * Procedure Codes:? * Preventive Medicine:? ??Urinary Incontinence:?Urinary Incontinence?Assessment:?Absent,?Plan of care documented:?No, reason not specified.? * true * Date:? Generated for Annie canseco/Yosvany/Carl on:?07/05/2024 04:57 PM EDT
--- OUTSIDE RECORDS SUMMARY | 2024-07-05 16:58 | XMS_ITS ---
Author Organization [facility] Address [address] [place] [phone] Care Team Providers Care Order Entry Administrator Name Role Phone Milton Esquivel MD Primary Care Provider Marco Bryant [phone] REASON FOR VISIT screening Problems Problem Type SNOMED Code ICD Code Onset Dates Problem Status W/U Status Risk Notes Problem Diverticular disease of colon (035340239) Diverticulosis of large intestine without perforation or abscess without bleeding (K57.30) Active confirmed Encounters Encounter Location Date Provider Diagnosis [facility] [address] [place] [phone] 04/02/2024 Marco Self Colon cancer scree lala [...] Notes * NADIRA SERRANODOB: (69 yo F)Acc No.[id number]:04/02/2024 COLON WITH MAC Patient:?NADIRA SERRANO Provider:?Marco Self MD :1955???Age:69 Y???Sex:Female D ate:04/02/2024 Address:[address] [place] [address] , [place], [phone] Pcp:Milton Esquivel MD Subjective: * Chief Complaints: * ???1. Screening. * Medical History:? Objective: * Vitals:? Assessment: * Assessment: 1.?Colon cancer screening - Z12.11 (Primary)???2.?Colon polyps - K63.5???3.?Diverticulosis of large intestine without perforation or abscess without bleeding - K57.30???4.?Other hemorrhoids - K64.8??? Plan: * Treatment: * Procedure Codes:?91491 LESIO N REMOVAL COLONOSCOPY, Modifiers: 33 * * The named appointment provid er may or may not be the originator of this progress note, and it is not deemed complete until electronically signed by the appointment provider. Sign off status: Pending * Provider:?Marco Self MD Date:? 025 Generated for Annie canseco/Yosvany/eTransmitting on:?07/05/2024 04:57 PM EDT
== END 2024-07-05 15:51 | disposition home or self-care (01) ==
LOC: HO.HMCHD 14:34
PROVIDERS: PCP Internal Medicine; Visit Provider Internal Medicine
DX: I10 Essential (primary) hypertension (principal); E78.00 Pure hypercholesterolemia, unspecified; I72.9 Aneurysm of unspecified site; Z00.00 Encounter for general adult medical examination without abnormal findings

== ENCOUNTER → 2024-07-05 14:34 | Outpatient (BNVA) | payer MEDICARE, SELFPAY | PROVIDERS: PCP Internal Medicine; Visit Provider Internal Medicine | DX: I10 Essential (primary) hypertension (principal); E78.00 Pure hypercholesterolemia, unspecified; I72.9 Aneurysm of unspecified site | CPT/HCPCS: 96127; 99202 ==

== ENCOUNTER 2024-08-18 14:17 | Outpatient (AMB) | payer MEDICARE, SELFPAY ==
--- NOTE | 2024-08-18 14:03 | MHC.PC.OV ---
Vital Signs 08/18/24 14:04 Height 5 ft 3 in Weight 178 lb BMI 31.5 BP 170/78 H Respiration 16 Pulse 73 Pulse Source Pulse Oximeter Temp 97.8 F Temp Source Temporal Artery Scan Pulse Oximetry (%) 99 Oxygen Delivery Method Room Air Intake Visit Reasons: 6 Week F/U - see comments Brake Lining Finisher Asbestos Required: No Accompanied by: Self / Same As Patient Allergies No Known Drug Allergies [NO KNOWN DRUG ALLERGIES] Allergy (Unknown, Verified 08/18/24 14:05) NONE Tobacco use date assessed: 08/18/24 Fall risk assessment: No Falls in past year Last assessed Fall Risk: 08/18/24 Dental Screening Dental Screen Date: 08/18/24 Did you have a dental visit in the last 12 months?: Yes Did you have a dental problem in the last 6 months where you did not have access to dental care?: No PFSH Medical History Renal calculi Elevated cholesterol HTN (hypertension) Surgical History H/O colonoscopy (04/02/24) Family History Mother No problems noted. Father No problems noted. Social History Household Members: Spouse Housing: House Patient Tobacco Use Status: Former Tobacco user e-Cigarette/Vaping Use: Former Use service: No Current occupational status: employed Cognitive needs: No Hearing needs: No Vision needs: Yes (reading) Questionnaire PHQ-9 Over the last 2 weeks, how often have you been bothered by any of the following problems? 1. Little interest or pleasure in doing things: not at all 2. Feeling down, depressed, or hopeless: not at all 3. Trouble falling or staying asleep, or sleeping too much: not at all 4. Feeling tired or having little energy: not at all 5. Poor appetite or overeating: not at all 6. Feeling bad about yourself - or that you are a failure or have let yourself or your family down: not at all 7. Trouble concentrating on things, such as reading the newspaper or watching television: not at all 8. Moving or speaking so slowly that other people could have noticed. Or the opposite - being so fidgety or restless that you have been moving around a lot more than usual: not at all 9. Thoughts that you would be better off or of hurting yourself in some way: not at all Total score: 0 Source: Developed by Drs. Marco Luna, Sue Siddiqui, Luis Chapman and colleagues, with an educational alejandro from [employer]. Thrive Questionnaire Date Thrive assessed: 08/18/24 I am a: Patient Within the past 12 months, did the food you bought not last and you didn't have the money to get more?: Never true Within the past 12 months, did you worry whether your food would run out before you got money to buy more?: Never true Do you have trouble paying for medicines?: No Do you have trouble getting transportation to medical appointments?: No Do you have trouble paying your heating and electricity bill?: No Do you have trouble taking care of your child, family member or friend?: No Do you have trouble with day-to-day activities such as bathing, preparing meals, shopping, managing finances, etc.?: No Are you currently unemployed and looking for a job?: No Are you interested in more education?: No THRIVE Score: 0 AUDIT C Alcohol Use Questionnaire (AUDIT-C) 1. How often do you have a drink containing alcohol?: Never 3. How often do you have six or more drinks on one occasion?: Never Total Score: 0 BRYSON-7 AMB Questionnaire BRYSON-7 Date BRYSON - 7 assessed: 08/18/24 Feeling nervous, anxious, or on edge: 0 = Not at all Not being able to stop or control worryin = Not at all Worrying too much about different things: 0 = Not at all Trouble relaxin = Not at all Being so restless that it is hard to sit still: 0 = Not at all Becoming easily annoyed or irritable: 0 = Not at all Feeling afraid as if something awful might happen: 0 = Not at all Total BRYSON-7 score (0-4 normal; 5-9 mild; 10-14 moderate; 15-21 severe): 0 Source: Developed by Drs. Marco L. CherylSue cuadra, Luis Chapman and colleagues, with an educational alejandro from [employer]. Physical exam (Primary Care) Vital Signs: Last Vital Signs Temp 97.8 F 08/18/24 14:04 Pulse 73 08/18/24 14:04 Resp 16 08/18/24 14:04 BP 170/78 H 08/18/24 14:04 Pulse Ox 99 08/18/24 14:04 Oxygen Delivery Method Room Air 08/18/24 14:04 BMI result Body Mass Index 31.5 Tobacco/Smoking Status: Tobacco use Status Tobacco use date assessed 08/18/24 08/18/24 14:06 Patient Tobacco Use Status Former Tobacco user 08/18/24 14:06 e-Cigarette/Vaping Use Former Use 08/18/24 14:06 PHQ-9: PHQ-9 Score PHQ-9: Total score 0 08/18/24 14:51 Thrive Assessment: Date of Thrive Assessment Date Thrive assessed 08/18/24 08/18/24 14:06 Coding Level of Care Code Est Pt Level 4 (00660) Complex EM visit Add On G2211 Diagnoses HTN (hypertension) I10 Assessment & Plan Assessment & Plan (1) HTN (hypertension): Code(s): I10 - Essential (primary) hypertension Category: Medical Plan: Losartan increased to 100 mg. Continue HCTZ at same dosage. Plan History of Present Illness - The patient is a 69-year-old female presenting with elevated blood pressure readings. - Blood pressure at home is usually around 137/76 mmHg, occasionally peaking at 150 mmHg. - During the visit, blood pressure was notably higher at 170/80 mmHg. - Regular self-monitoring occurs twice daily to detect diurnal variations. - Recent medication change from lisinopril to another antihypertensive, with no reported side effects. - Elevated readings during the visit may be due to situational stress. Social History Review of Systems - Cardiovascular: Reports occasional elevated blood pressure readings. - Neurological: Denies any symptoms related to elevated blood pressure, such as headaches or dizziness. Physical Exam General: Cooperative and healthy appearing Nutritional Appearance: Well nourished Orientation/consciousness: Patient oriented x3 Limitations: No limitations Head: Normal to inspection General: Appearance normal, both eyes and all related structures Neck: Normal visual inspection Chest: Normal palpation of entire chest wall Respiratory: Normal respiratory effort Neurology: Patient oriented x3 Results Plan 1. Essential Hypertension - Encourage regular home monitoring of blood pressure. - Continue prescribed antihypertensive medication. - Review medication effectiveness and adjust as needed. - Plan follow-up visit to assess blood pressure trends. - Consider lifestyle changes to aid blood pressure control. Discussion Notes I discussed with the patient her elevated blood pressure reading during today's visit, which was significantly higher than her typical home readings. We reviewed her current medication regimen and confirmed that she has transitioned from lisinopril to another antihypertensive medication, with no reported side effects. I emphasized the importance of regular home monitoring of blood pressure, especially due to the noted variations in readings. We also talked about the potential influence of situational stress on her blood pressure. I recommended continuing her current medication and considering lifestyle modifications such as dietary changes, increased physical activity, and stress management techniques. We agreed to schedule a follow-up appointment to reassess her blood pressure trends and medication efficacy. Patient Instructions - Continue taking your blood pressure medication as prescribed. - Monitor your blood pressure at home twice a day, in the morning and at night. - Record your blood pressure readings and bring them to your next appointment. - Try to reduce stress, as it may affect your blood pressure. - Follow a healthy diet and engage in regular physical activity. - Schedule a follow-up appointment to review your blood pressure readings. Medications: Changed From losartan 50 mg PO DAILY 90 tabs 1RF To losartan 100 mg (2 x 50 mg) PO DAILY 90 tabs 1RF
[2024-08-18 14:04] VITALS: BP 170/78; PULSE 73; RESP 16; TEMP 36.6; O2SAT 99; BMI 31.5
--- OUTSIDE RECORDS SUMMARY | 2024-08-18 15:12 | XMS_ITS | Clinical Summary ---
Author Organization [address] [place] [address] [place] [phone] Phone Care Team Providers Care Director Of Pupil Personnel Program Name Role Phone Milton Esquivel MD Primary Care Provider [phone] Allergies No known active allergies Medications atorvastatin (LIPITOR) 10 mg tablet Take 1 tablet (10 mg total) by mouth 1 (one) time each day. 03/22/2024 Active lisinopriL (PRINIVIL,ZESTRI L) 10 mg tablet Take 1 tablet (10 mg total) by mouth 1 (one) time each day. 03/04/2024 Active Social History Tobacco Use Types Packs/Day Years [...] Vaccines (1 of 2) 2005 COVID-19 Vaccine (2023-2 5 season) 2023 02/22/2021, 07/09/2020, 06/16/2020 Colorectal [...] on patient's age to complete this topic Insurance [employer] Care Teams Director Of Pupil Personnel Program Relationship Specialty Start Date End Date Milton Esquivel MD [address] [place] [address] Dr Federico MA PCP - General Internal Medicine 05/16/24
== END 2024-08-18 15:00 | disposition home or self-care (01) ==
LOC: HO.HMCHD 14:17
PROVIDERS: PCP Internal Medicine; Visit Provider Internal Medicine
DX: I10 Essential (primary) hypertension (principal)

== ENCOUNTER → 2024-08-18 14:17 | Outpatient (BNVA) | payer MEDICARE, SELFPAY | PROVIDERS: PCP Internal Medicine; Visit Provider Internal Medicine | DX: I10 Essential (primary) hypertension (principal); Z79.899 Other long term (current) drug therapy | CPT/HCPCS: 96127; 99212 ==

== ENCOUNTER 2024-09-01 14:51 | Outpatient (AMB) | payer MEDICARE, SELFPAY ==
--- NOTE | 2024-09-01 15:06 | MHC.PC.OV ---
Vital Signs 09/01/24 15:08 Height 5 ft 3 in Weight 176 lb BMI 31.2 BP 140/76 H Blood Pressure Location Rt brachial Pulse 78 Pulse Source Pulse Oximeter Temp 98.4 F Temp Source Axillary Pulse Oximetry (%) 98 Oxygen Delivery Method Room Air Intake Visit Reasons: 2 week f/u - see comments Accompanied by: Self / Same As Patient Allergies No Known Drug Allergies [NO KNOWN DRUG ALLERGIES] Allergy (Unknown, Verified 09/03/24 13:19) NONE Medication List - Last Reconciled 09/03/24 by Herrera Mosley MD ascorbic acid (vitamin C) mg PO atorvastatin 10 mg PO DAILY cholecalciferol (vitamin D3) (Vitamin D3) 50 mcg PO DAILY hydrochlorothiazide 25 mg PO DAILY losartan 100 mg (2 x 50 mg) PO DAILY omega 9-pst-xcv-fish oil 60-90-500 mg (Fish Oil) 1 cap PO DAILY Tobacco use date assessed: 09/01/24 Fall risk assessment: No Falls in past year Last assessed Fall Risk: 09/01/24 Dental Screening Dental Screen Date: 08/18/24 Did you have a dental visit in the last 12 months?: Yes Did you have a dental problem in the last 6 months where you did not have access to dental care?: No PFSH Medical History Renal calculi Elevated cholesterol HTN (hypertension) Surgical History H/O colonoscopy (04/02/24) Family History Mother No problems noted. Father No problems noted. Social History Household Members: Spouse Housing: House Patient Tobacco Use Status: Former Tobacco user e-Cigarette/Vaping Use: Former Use service: No Current occupational status: employed Cognitive needs: No Hearing needs: No Vision needs: Yes (reading) Questionnaire PHQ-9 Over the last 2 weeks, how often have you been bothered by any of the following problems? 1. Little interest or pleasure in doing things: not at all 2. Feeling down, depressed, or hopeless: not at all 3. Trouble falling or staying asleep, or sleeping too much: not at all 4. Feeling tired or having little energy: not at all 5. Poor appetite or overeating: not at all 6. Feeling bad about yourself - or that you are a failure or have let yourself or your family down: not at all 7. Trouble concentrating on things, such as reading the newspaper or watching television: not at all 8. Moving or speaking so slowly that other people could have noticed. Or the opposite - being so fidgety or restless that you have been moving around a lot more than usual: not at all 9. Thoughts that you would be better off or of hurting yourself in some way: not at all Total score: 0 Source: Developed by Drs. Marco Luna, Sue Siddiqui, Luis Chapman and colleagues, with an educational alejandro from [employer]. Thrive Questionnaire Date Thrive assessed: 09/01/24 I am a: Patient Within the past 12 months, did the food you bought not last and you didn't have the money to get more?: Never true Within the past 12 months, did you worry whether your food would run out before you got money to buy more?: Never true Do you have trouble paying for medicines?: No Do you have trouble getting transportation to medical appointments?: No Do you have trouble paying your heating and electricity bill?: No Do you have trouble taking care of your child, family member or friend?: No Do you have trouble with day-to-day activities such as bathing, preparing meals, shopping, managing finances, etc.?: No Are you currently unemployed and looking for a job?: No Are you interested in more education?: No THRIVE Score: 0 AUDIT C Alcohol Use Questionnaire (AUDIT-C) 1. How often do you have a drink containing alcohol?: Never 3. How often do you have six or more drinks on one occasion?: Never Total Score: 0 BRYSON-7 AMB Questionnaire BRYSON-7 Date BRYSON - 7 assessed: 09/01/24 Feeling nervous, anxious, or on edge: 0 = Not at all Not being able to stop or control worryin = Not at all Worrying too much about different things: 0 = Not at all Trouble relaxin = Not at all Being so restless that it is hard to sit still: 0 = Not at all Becoming easily annoyed or irritable: 0 = Not at all Feeling afraid as if something awful might happen: 0 = Not at all Total BRYSON-7 score (0-4 normal; 5-9 mild; 10-14 moderate; 15-21 severe): 0 Source: Developed by Drs. Marco Luna, Sue Siddiqui, Luis Chapman and colleagues, with an educational alejandro from [employer]. Physical exam (Primary Care) Vital Signs: Last Vital Signs Temp 98.4 F 09/01/24 15:08 Pulse 78 09/01/24 15:08 BP 140/76 H 09/01/24 15:08 Pulse Ox 98 09/01/24 15:08 Oxygen Delivery Method Room Air 09/01/24 15:08 BMI result Body Mass Index 31.2 BMI Assessment/Plan discussion: High Tobacco/Smoking Status: Tobacco use Status Tobacco use date assessed 09/01/24 09/01/24 15:14 Patient Tobacco Use Status Former Tobacco user 09/01/24 15:14 e-Cigarette/Vaping Use Former Use 09/01/24 15:14 PHQ-9: PHQ-9 Score PHQ-9: Total score 0 09/01/24 15:14 Thrive Assessment: Date of Thrive Assessment Date Thrive assessed 09/01/24 09/01/24 15:14 Coding Level of Care Code Est Pt Level 4 (22167) Complex EM visit Add On G2211 Diagnoses HTN (hypertension) I10 Assessment & Plan Assessment & Plan (1) HTN (hypertension): Code(s): I10 - Essential (primary) hypertension Category: Medical Plan: History of Present Illness - The patient is a 69-year-old female presenting with management of essential hypertension. - Patient reported a high blood pressure reading of 170/ [unrecorded], attributing the spike to dietary choices and stress. - Regular levels were around 130/ [unrecorded]. - The patient follows a strict diet but recently lapsed, eating peanut butter late at night. - Adherence to blood pressure medication regimen, specifically Hydrochlorothiazide, was confirmed. - Blood pressure control primarily through diuresis was discussed with the patient. Social History - The patient described dietary habits including adherence to a strict diet, but reported occasional lapses. Review of Systems - Cardiovascular: Reports variations in blood pressure readings. Physical Exam General: Cooperative and healthy appearing Nutritional Appearance: Well nourished Orientation/consciousness: Patient oriented x3 Limitations: No limitations Head: Normal to inspection General: Appearance normal, both eyes and all related structures Neck: Normal visual inspection Chest: Normal palpation of entire chest wall Respiratory: Normal respiratory effort Neurology: Patient oriented x3 Results Plan 1. Essential Hypertension - Continue Hydrochlorothiazide. - Routine blood pressure monitoring. - Emphasize dietary control. - Consider additional medication if elevated readings persist. - Re-evaluation in six months. Discussion Notes During our conversation, I addressed the patient's concerns about blood pressure fluctuations, emphasizing the importance of continued medication adherence and dietary management. We discussed that Hydrochlorothiazide contributes to blood pressure control through diuresis and advised continuing the current dosage. I cautioned the patient about the potential for increased stroke risk with uncontrolled blood pressure. A possible addition of a third medication was suggested should blood pressure remain uncontrolled. Follow-up for review and adjustment of the treatment plan was arranged within six months. Patient Instructions - Continue taking your prescribed blood pressure medicine every day. - Monitor your blood pressure regularly. - Stick to your diet plan and avoid eating late at night. - If your blood pressure gets high, reach out for additional guidance. - Follow up in six months for a check-up.
[2024-09-01 15:08] VITALS: BP 140/76; PULSE 78; TEMP 36.9; O2SAT 98; BMI 31.2
--- OUTSIDE RECORDS SUMMARY | 2024-09-01 17:04 | XMS_ITS | Clinical Summary ---
Author Organization [address] [place] [address] [place] [phone] Phone Care Team Providers Care Senior Escrow Officer Name Role Phone Milton Esquivel MD Primary Care Provider [phone] Allergies No known active allergies Medications atorvastatin [...] [employer] Care Teams Senior Escrow Officer Relationship Specialty Start Date End Date Milton Esquivel MD [address] [place] [address] Dr Federico MA PCP - General Internal Medicine 05/16/24
== END 2024-09-01 15:24 | disposition home or self-care (01) ==
LOC: HO.HMCHD 14:51
PROVIDERS: PCP Internal Medicine; Visit Provider Internal Medicine
DX: I10 Essential (primary) hypertension (principal)

== ENCOUNTER → 2024-09-01 14:51 | Outpatient (BNVA) | payer MEDICARE, SELFPAY | PROVIDERS: PCP Internal Medicine; Visit Provider Internal Medicine | DX: I10 Essential (primary) hypertension (principal) | CPT/HCPCS: 96127; 99212 ==

== ENCOUNTER 2024-10-14 12:47 | Outpatient (REF) | payer MEDICARE, SELFPAY ==
--- NOTE | ~2024-10-14 | CT_ITS ---
CLINICAL HISTORY: I72.9 - Aneurysm of unspecified site --- Additional Notes or Special Instructions: Family history of cerebral aneurysm CT angiography head with contrast. 3D Postprocessing. Comparison: None provided Findings: Intracranial arteries are patent. No aneurysm, dissection, hemodynamically significant stenoses, or occlusion. No abnormal intracranial enhancement. No intra-axial mass, midline shift, hydrocephalus, or acute hemorrhage. There is no acute fracture. IMPRESSION: Patent head CTA. This document has been electronically signed by: Emiliano Fofana MD on 10/16/2024 09:54:16
--- OUTSIDE RECORDS SUMMARY | 2024-10-14 13:01 | XMS_ITS | Clinical Summary ---
Author Organization [facility] Address [address] [place] [address] Care Team Providers Care Client Analyst Name Role Phone Unavailable Primary Care Provider [...] Mass Index - - Plan of Treatment Upcoming Encounters Date Type Department Care Team ([facility] st Contact Info) Description 11/11/2024 11:00 AM EDT Office Visit [facility] [address] [place] [phone] April Shi [address] [place] [address] Health Maintenance Due Date Last Done Comments Diabetes Screening 1955 Hepatitis C Screening 1955 Lipid Screening 1955 Tobacco Screening 1955 Imm-DTaP/Tdap/Td (1 - Tdap) 1974 Breast Cancer Screening (Mammogram) 1995 CT Colonography 01/03/2000 Colonoscopy 01/03/2000 Colorectal Cancer Screening 01/03/2000 FIT/gFOBT 01/03/2000 Fecal DNA 01/03/2000 Flexible Sigmoidoscopy 01/03/2000 Imm-Pneumococcal 50+ (1 of 1 - PCV) 2005 Imm-Zoster, Recombinant (1 of 2) 2005 Bone Density Screening 01/03/2020 Falls Prevention 01/03/2020 [id number] ( season) 2023 Alcohol and Drug Screen 03/24/2024 Depression Annual Screen 03/24/2024 Hypertension Screening (#1) 09/09/2024 Imm-Influenza (#1) 2024
--- OUTSIDE RECORDS SUMMARY | 2024-10-14 13:01 | XMS_ITS | Clinical Summary ---
Author Organization [address] [place] [address] [place] [phone] Phone Care Team Providers Care Retanner Name Role Phone Milton Esquivel MD Primary Care Provider [phone] Allergies No known active allergies Medications atorvastatin [...] 70 05/16/2024 2:00 PM EST Temperature 36.7 C (98 F) 05/16/2024 2:00 PM EST Respiratory Rate - [...] (2023-2 5 season) 2023 02/22/2021, 07/09/2020, 06/16/2020 Depression Screening 03/24/2024 Colorectal Cancer Screening: Colonoscopy 05/16/2024 Falls Risk Assessment 05/16/2024 Hepatitis C Screening 05/16/2024 Medicare Annual Wellness Visit 05/16/2024 Osteoporosis Screening (Bone Density Screening) 05/16/2024 Social Influencers of Health Screening 05/16/2024 Influenza Vaccine (#1) 2024 RSV Immunization Adult Patients (1 - [...] [employer] Care Teams Retanner Relationship Specialty Start Date End Date Milton Esquivel MD [address] [place] [address] Dr Federico MA PCP - General Internal Medicine 05/16/24
--- OUTSIDE RECORDS SUMMARY | 2024-10-14 13:01 | XMS_ITS | Patient Health Record ---
Author Organization [facility] Address [address] [place] [phone] Care Team Providers Care Manifest/Order Organizer Print Orders Name Role Phone Sierra (RETIRED) Milton ROSENTHAL Primary Care Provide r Marco Lane Unavailable [phone] Allergies No Known Allergies Reason For Referral [...] Section Notes: Nonsmoker; no sig alcohol From [place] originally Problems Problem Type SNOMED Code ICD Code Onset Dates Problem Status W/U Status Risk Notes Problem Colon cancer screening (321198369) Colon cancer screening (Z12.11) Active confirmed Problem Pre-procedure evaluation check (625236408) Encounter for other preprocedural examination (Z01.818) Active confirmed Problem Diverticular disease of colon (434048296) Diverticulosis of large intestine without perforation or abscess without bleeding (K57.30) Active confirmed Vital Signs Heart Rate 80 /min 12/02/2023 Temperature 98.6 degrees Fahrenheit 12/02/2023 Blood pressure diastolic 00 mm Hg 12/02/2023 Height 5 in 12/02/2023 Blood pressure systolic 00 mm Hg 12/02/2023 Weight 189 lbs 12/02/2023 BMI 5,314.68 kg/m2 12/02/2023 Encounters Encounter Location Date Provider Diagnosis [facility] Outpatient [address] [place] [id number] 04/02/2024 Marco Self Colon cancer screeni ng Z12.11 ; Colon polyps K63.5 ; Diverticulosis of large intestine without perforation or abscess without bleeding K57.30 and Other hemorrhoids K64.8 [facility] [address] [place] [phone] 12/02/2023 Marco Self Colon cancer screeni ng Z12.11 and Encounter for other preprocedural examination Z01.818 [facility] [address] [place] [phone] 12/08/2023 Marco Self [facility] [address] [place] [phone] 12/02/2023 Marco Self Assessments Encounter Date Diagnosis [...] Insured Coverage Start Date Coverage End Date [facility] [address] [place] [phone] [id number] TAMIKO SERRANO Self - patient is the insured Medical (General) History Medical History History ICD Code Kidney stones Hypertension Negative screening colonoscopy > 10 year s ago Denies [place],DM,CVA,Lung disease,renal dise ase Hyperlipidemia Surgical History Surgery Date(Month/Year)
[2024-10-14 13:34] LABS: Hematocrit 36.7 % (37.0-47.0); Hemoglobin 11.6 g/dl (12.0-16.0); Mean Corpuscular HGB Conc 31.6 g/dl (31.0-35.0); Mean Corpuscular Hemoglobin 25.7 pg (27.0-33.0); Mean Corpuscular Volume 81.4 fL (80.0-98.0); NRBC Abs Auto 0.000 X10*3/uL (0.0-0.012); NRBC Pct Auto 0.0 /100WBC (0.0-0.2); Platelet Count 213 X10*3/uL (160-400); Red Blood Count 4.51 X10*6/uL (4.20-5.50); White Blood Count 7.0 X10*3/uL (4.8-10.8)
[2024-10-14 13:49] LABS: Appearance Urine Clear; Glucose Urine UA Negative (Negative); PH 5.5 (5.0-9.0); Specific Gravity - Urine 1.025 (1.005-1.025); UMIC TRIGGER UA YES
[2024-10-14 14:10] LABS: Alanine Aminotransferase 15 U/L (0-31); Albumin Level 4.6 g/dL (3.5-5.0); Alkaline Phosphatase 76 U/L (39-117); Anion Gap 13 (12-20); Aspartate Amino Transferase 19 U/L (5-31); Blood Urea Nitrogen 14 mg/dL (9-16); Calcium 9.5 mg/dL (8.4-10.2); Carbon Dioxide 29 mmol/L (22-29); Chloride 106 mmol/L (96-108); Cholesterol 155 mg/dL (<200); Estimated Glomerular Filt Rate > 60; HDL Cholesterol 49 mg/dL (>40); Potassium 3.6 mmol/L (3.3-5.1); Sodium 144 mmol/L (135-145); Total Protein 7.6 g/dL (6.5-8.0); Triglycerides 86 mg/dL (<150)
[2024-10-14 14:24] LABS: Thyroid Stimulating Hormone 1.27 uIU/mL (0.32-4.0)
[2024-10-14] MEDS: iohexoL 350 MG/ML 100 ML INFUS..BTL 75 ML IV (15:39)
[2024-10-15 14:53] LABS: Creatinine POC 0.9 mg/dL (0.5-1.4); GFR POC > 60
== END 2024-10-14 12:48 | disposition home or self-care (01) ==
LOC: HO.CT 12:47
PROVIDERS: PCP Internal Medicine; Visit Provider Internal Medicine
DX: Z12.31 Encounter for screening mammogram for malignant neoplasm of breast (principal); I10 Essential (primary) hypertension; E78.00 Pure hypercholesterolemia, unspecified; I72.9 Aneurysm of unspecified site
CPT/HCPCS: 36415; 70496; 77063; 77067; 80048; 80061; 80076; 81001; 82565; 84443; 85027; Q9967

== ENCOUNTER → 2024-10-14 13:02 | Outpatient (BNV) | payer MEDICARE, SELFPAY | PROVIDERS: PCP Internal Medicine; Visit Provider Specialist | DX: I72.9 Aneurysm of unspecified site (principal) | CPT/HCPCS: 70496 ==

== ENCOUNTER 2025-03-02 15:28 | Outpatient (AMB) | payer MEDICARE, SELFPAY ==
--- OUTSIDE RECORDS SUMMARY | 2024-04-02 04:30 | XMS_ITS ---
Author Organization [facility] Address [address] [place] [id number] Care Team Providers Care Cnc Machine Setter Name Role Phone Sierra (RETIRED) Milton ROSENTHAL Primary Care Provide r Marco Lane Unavailable [phone] REASON FOR VISIT screening Problems Problem Type SNOMED Code ICD Code Onset Dates Problem Status W/U Status Risk Notes Problem Diverticular disease of colon (687697706) Diverticulosis of large intestine without perforation or abscess without bleeding (K57.30) Active confirmed Encounters Encounter Location Date Provider Diagnosis [facility] Out[facility] [address] [place] [phone] 04/02/2024 Marco Self Colon cancer scree lala Z12.11 ; Colon polyps K63.5 ; Diverticulosis of large intestine without perforation or abscess without bleeding K57.30 and Other hemorrhoids K64.8 Assessments Encounter Date Diagnosis (ICD Code) Assessment Notes Treatment Notes Treatment Clinical Notes Section Notes 04/02/2024 Colon cancer screening (ICD-10 - Z12.11) 04/02/2024 Colon polyps (ICD-10 - K63.5) 04/02/2024 Diverticulosis of large intestine without perforation or abscess without bleeding (ICD-10 - K57.30) 04/02/2024 Other hemorrhoids (ICD-10 - K64.8) Plan Of Treatment No Information Progress Notes * NADIRA SERRANODOB: (70 yo F)Acc No.[id number]:04/02/2024 COLON WITH MAC Patient: Robert BAINADIRA FRASER Provider: Mariana Self MD :1955 A ge:69 Y S ex:Female Date:04/02/2024 Address:[address] [place] [address] , [place], [place] Pcp:Milton Esquivel (RETIRED )MD Subjective: * Chief Complaints: * S creening Assessment: * Assessment: 1. C olon cancer screening - Z12.11 (Primary) 2 . C olon polyps - K63.5? 3. D iverticulosis of large intestine without perforation or abscess without bleeding - K57.30 4 . O ther hemorrhoids - K64.8 Plan: * Procedure Codes: 4 5385 LESION REMOVAL COLONOSCOPY, Modifiers: 33 Billing Information: * Procedure Codes: 06551 LESION REMOVAL COLONOSCOPY. Modifiers: 33 * The named appointment provid er may or may not be the originator of this progress note, and it is not deemed complete until electronically signed by the appointment provider. Sign off status: Pending * Provider: Mariana Self MD Date: 0 04/02/2024 Generated for Annie canseco/[email or web address]/Meetasmitting on: 1 05/04/2024 12:07 AM EST
--- NOTE | 2025-03-02 15:34 | A.OFFPC_ITS ---
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 Accompanied by: Self / Same As Patient Allergies No Known Drug Allergies (NO KNOWN DRUG ALLERGIES) Allergy (Unknown, Verified 03/02/25 15:35) NONE Medication List - Last Reconciled 03/02/25 by STEPHANIE Lindsey ascorbic acid (vitamin C) mg PO atorvastatin 10 mg PO DAILY cholecalciferol (vitamin D3) (Vitamin D3) 50 mcg PO DAILY hydrochlorothiazide 25 mg PO DAILY 90 days levocetirizine 5 mg PO DAILY losartan 100 mg PO DAILY omega 2-miw-ayt-fish oil 60-90-500 mg (Fish Oil) 1 cap PO DAILY Tobacco use date assessed: 03/02/25 Fall risk assessment: No Falls in past year Last assessed Fall Risk: 03/02/25 Dental Screening Dental Screen Date: 03/02/25 Did you have a dental visit in the last 12 months?: Yes Did you have a dental problem in the last 6 months where you did not have access to dental care?: No HPI HPI Comments History of Present Illness Details History of Present Illness The patient is a 70 year old female with HLD, HTN and low vitamin D presenting with halitosis and chronic mucus production. She has no dental cavities but reports a persistent odor, which her stepdaughter suggested might be due to a sour stomach. The patient has a history of acid reflux, but it has not been bothersome for a long time. She is constantly bringing up mucus, which she clears from her throat without coughing. This occurs almost every morning; the mucus is sometimes white and thick like saliva, and other times has a slight discoloration. The patient also reports a history of nasal passage closure, for which she was previously prescribed Flonase but stopped using it due to concerns about dependency. Her breathing is currently not bad. For the past couple of days, she has noticed a slight throbbing pressure over her sinuses. She sometimes uses Vicks VapoRub on her chest and nostrils or inhales it with steam for relief. Her chronic conditions include hypertension, managed with hydrochlorothiazide and losartan. Her BP today was 136/74. She has hyperlipidemia, treated with atorvastatin. She also takes fish oil, vitamin C, and vitamin D. Blood work from September showed a long-standing slight anemia. She has a history of glaucoma and is monitored annually, with her condition described as stable. Her preventative screenings, including a mammogram in September and a prior colonoscopy, are up to date. Medical History: - Hypertension - Hyperlipidemia - Anemia, chronic - Gastroesophageal reflux disease, resol alexis - Glaucoma - Allergic rhinitis Medications: - Atorvastatin - Fish oil - Vitamin C - Vitamin D - Hydrochlorothiazide for hypertension - Losartan for hypertension - Flonase, as needed for nasal congestio n, not currently using Health Maintenance The patient is up-to-date with her mammogram and colonoscopy. I will schedule a follow-up appointment in three months to reassess her symptoms and for general follow-up Results - Blood work (September): Revealed a slight a nemia, which is a chronic finding. - Mammogram (September): Normal. - Colonoscopy: Last result was normal, n ext one due in 2029. Patient was informed and verbally consented to the use of an ambient scribe for clinic note documentation during this visit. [facility] Medical History (Updated 03/02/25 @ 17:46 by STEPHANIE Lindsey) Allergic rhinitis Elevated cholesterol HTN (hypertension) Renal calculi Surgical History H/O colonoscopy (04/02/24) Family History (Updated 03/02/25 @ 15:48 by Kathleen Bower MA) Mother No problems noted. Father No problems noted. Father No problems noted. Social History Household Members: Spouse Housing: House Patient Tobacco Use Status: Former Tobacco user e-Cigarette/Vaping Use: Former Use service: No Current occupational status: employed Cognitive needs: No Hearing needs: No Vision needs: Yes (reading) Questionnaire PHQ-9 Over the last 2 weeks, how often have you been bothered by any of the following problems? 1. Little interest or pleasure in doing things: not at all 2. Feeling down, depressed, or hopeless: not at all 3. Trouble falling or staying asleep, or sleeping too much: not at all 4. Feeling tired or having little energy: not at all 5. Poor appetite or overeating: not at all 6. Feeling bad about yourself - or that you are a failure or have let yourself or your family down: not at all 7. Trouble concentrating on things, such as reading the newspaper or watching television: not at all 8. Moving or speaking so slowly that other people could have noticed. Or the opposite - being so fidgety or restless that you have been moving around a lot more than usual: not at all 9. Thoughts that you would be better off or of hurting yourself in some way: not at all Total score: 0 Depression Screening Interpretation: Negative Depression Screening Done: Yes Source: Developed by Drs. Marco Luna, Sue Siddiqui, Luis Chapman and colleagues, with an educational alejandro from [employer]. Thrive Questionnaire Date Thrive assessed: 03/02/25 I am a: Patient Within the past 12 months, did the food you bought not last and you didn't have the money to get more?: Never true Within the past 12 months, did you worry whether your food would run out before you got money to buy more?: Never true Do you have trouble paying for medicines?: No Do you have trouble getting transportation to medical appointments?: No Do you have trouble paying your heating and electricity bill?: No Do you have trouble taking care of your child, family member or friend?: No Do you have trouble with day-to-day activities such as bathing, preparing meals, shopping, managing finances, etc.?: No Are you currently unemployed and looking for a job?: No Are you interested in more education?: No THRIVE Score: 0 AUDIT C Alcohol Use Questionnaire (AUDIT-C) 1. How often do you have a drink containing alcohol?: Never 3. How often do you have six or more drinks on one occasion?: Never Total Score: 0 BRYSON-7 AMB Questionnaire BRYSON-7 Date BRYSON - 7 assessed: 03/02/25 Feeling nervous, anxious, or on edge: 0 = Not at all Not being able to stop or control worryin = Not at all Worrying too much about different things: 0 = Not at all Trouble relaxin = Not at all Being so restless that it is hard to sit still: 0 = Not at all Becoming easily annoyed or irritable: 0 = Not at all Feeling afraid as if something awful might happen: 0 = Not at all Total BRYSON-7 score (0-4 normal; 5-9 mild; 10-14 moderate; 15-21 severe): 0 Source: Developed by Drs. Marco Luna, Sue Siddiqui, Luis Chapman and colleagues, with an educational alejandro from [employer]. Review of Systems Narrative Review of Systems - GENERAL: Denies fever, chills. - EYES: Denies vision problems. - EARS: Denies hearing problems. - NOSE: Reports history of nasal passage closure and recent slight facial pressure. - MOUTH/THROAT: Reports bad breath and constant production of mucus which she clears from her throat. - CARDIOVASCULAR: Denies chest pain and palpitations. - RESPIRATORY: Reports clearing mucus from throat without coughing. Denies significant breathing issues. - GASTROINTESTINAL: Reports history of acid reflux, which is not currently active. Denies constipation or diarrhea. Physical exam (Primary Care) Vital Signs: Last Vital Signs Temp 97.6 F 03/02/25 15:35 Pulse 96 03/02/25 15:35 BP 136/74 03/02/25 15:35 Pulse Ox 98 03/02/25 15:35 Oxygen Delivery Method Room Air 03/02/25 15:35 BMI result Body Mass Index 30.1 GENERAL Well developed, obese, in no apparent distress HEENT Head-Normocephalic Eyes- PERRLA, EOMI, Conjuctiva clear, lids WNL Ears- Canals clear, TMs WNL Mouth/Throat-No lesions, mild erythema, no exudate, post nasal drip Neck- Supple, No lymphadenopathy, thyroid WNL RESPIRATORY Normal I:E, Clear to auscultation CARDIOVASCULAR Regular, rate and rhythm, No murmurs or rubs GASTROINTESTINAL Soft, nontender, normal bowel sounds, no masses NEUROLOGICAL Gait normal PSYCHIATRIC Oriented to person, place and time Mood and affect WNL Appearance WNL Speech WNL Thought processes WNL Tobacco/Smoking Status: Tobacco use Status Tobacco use date assessed 03/02/25 03/02/25 15:36 Patient Tobacco Use Status Former Tobacco user 03/02/25 15:36 e-Cigarette/Vaping Use Former Use 03/02/25 15:36 PHQ-9: PHQ-9 Score PHQ-9: Total score 0 03/02/25 15:49 Depression Screening Interpretation: Negative Thrive Assessment: Date of Thrive Assessment Date Thrive assessed 03/02/25 03/02/25 15:49 Coding Level of Care Code Established Pt Est Pt Level 4 (15203) Established Pt Add On Problem Visit Only Patient Type Established Diagnoses HTN (hypertension) I10 Elevated cholesterol E78.00 Allergic rhinitis J30.9 Time Spent (min) 30 Comment Time was spent on chart review, medication reconciliation, H&P, Patient education, orders. Assessment & Plan Assessment & Plan (1) HTN (hypertension): Comment: BP today was 136/74 Code(s): I10 - Essential (primary) hypertension Category: Medical Plan: Controlled (2) Elevated cholesterol: Comment: labs reviewed Code(s): E78.00 - Pure hypercholesterolemia, unspecified Category: Medical Plan: Controlled (3) Allergic rhinitis: Code(s): J30.9 - Allergic rhinitis, unspecified Category: Medical Plan: Will treat with Levocetirizine, Patient to follow up in 3 months or sooner if symptoms persist or worsen. Plan Plan Patient was informed and verbally consented to the use of an ambient scribe for clinic note documentation during this visit. 1. Allergic Rhinitis With Postnasal Drip The patient's symptoms of chronic mucus production, halitosis, and recent facial pressure are likely due to sinus inflammation and postnasal drip rather than a gastrointestinal issue like sour stomach. The plan is to start a non-sedating antihistamine, likely loratadine, to be taken at bedtime to manage the allergy- related inflammation. The specific medication will be chosen based on insurance coverage. I advised a trial of a couple of weeks to assess efficacy. If symptoms do not improve, she is to call back; otherwise, a follow-up is scheduled in three months. 2. Hypertension The patient's blood pressure is well-controlled on her current regimen of hydrochlorothiazide and losartan. She has a refill for hydrochlorothiazide pending at her pharmacy. I will verify that all her blood pressure medications have refills. Discussion Notes I discussed with the patient that her symptoms of bad breath and mucus are likely due to sinus inflammation and postnasal drainage rather than a stomach issue. I explained that we would start a non-sedating antihistamine for allergy inflammation to see if it clears up her symptoms. I instructed her to take the medication at bedtime. I advised her to give the medication a couple of weeks to work and to call me if she feels it is not helping. We agreed that treatment for sour stomach is not needed at this time, but we may consider it if her symptoms persist after trying the allergy medication. I scheduled a follow-up appointment for her in three months. Patient Instructions - I will send a new prescription for an allergy medication (loratadine or a similar one covered by your insurance) to your [facility] pharmacy on [facility]. - Take this new allergy medication once daily at bedtime. - Continue taking your other medications as prescribed. - Give the new medication a couple of weeks to see if it helps with the mucus and bad breath. - If you do not feel any improvement after a couple of weeks, please call our office. - We have scheduled a follow-up appointment for you in three months. - You have a refill for your hydrochlorothiazide ready for pickup at the pharmacy. Medications: New atorvastatin 10 mg PO DAILY 90 tabs 1RF cholesterol levocetirizine 5 mg PO DAILY 90 tabs 1RF for mucus Refilled hydrochlorothiazide 25 mg PO DAILY 90 tabs 1RF 90 days losartan 100 mg PO DAILY 90 tabs 3RF
[2025-03-02 15:35] VITALS: BP 136/74; PULSE 96; TEMP 36.4; O2SAT 98; BMI 30.1
--- OUTSIDE RECORDS SUMMARY | 2025-03-03 00:07 | XMS_ITS | Clinical Summary ---
Author Organization [address] [place] [address] [place] [phone] Phone Care Team Providers Care Safety Teacher Name Role Phone Milton Esquivel MD Primary Care Provider [phone] Allergies No known active allergies Medications atorvastatin [...] Last Done Comments Breast Cancer Screening 1955 Colorectal Cancer Screening: Colonoscopy 1955 DTaP,Tdap,and Td Vaccines (1 - Tdap) 1974 Pneumococcal Vaccine: 50+ Years (1 of 1 - PCV) 2005 Zoster Vaccines (1 of 2) 2005 Depression Screening 03/24/2024 Falls Risk Assessment 05/16/2024 Hepatitis C Screening 05/16/2024 Medicare Annual Wellness Visit 05/16/2024 Osteoporosis Screening (Bone Density Screening) 05/16/2024 Social Influencers of Health Screening 05/16/2024 COVID-19 Vaccine (4 - 2024-2 6 season) 2024 02/22/2021, 07/09/2020, 06/16/2020 Influenza Vaccine (#1) 2024 RSV Immunization Adult [...] [employer] [place] [employer] Care Teams Safety Teacher Relationship Specialty Start Date End Date Milton Esquivel MD [address] [place] [address] Dr Federico MA PCP - General Internal Medicine 05/16/24
--- OUTSIDE RECORDS SUMMARY | 2025-03-03 00:07 | XMS_ITS | Patient Health Record ---
Author Organization [facility] Address [address] [place] [id number] Care Team Providers Care Pallet Repairer Name Role Phone Sierra (RETIRED) Milton ROSENTHAL Primary Care Provide r Marco Lane Unavailable [phone] Allergies No Known Allergies Reason For Referral No Information Medications Medication SIG (Take, Route, Frequency, Duration) Notes Start Date End Date Status Vitamin D 50 MCG (1999) Tablet 1 tablet Orally Once a day; Duration: 30 day(s) Active Atorvastatin Calcium 10 MG Tablet 1 tablet Orally Once a day; Duration: 30 day(s) Active Lisinopril 10 MG Tablet 1 tablet Orally Once a day; Duration: 30 day(s) Active Social History Tobacco Use: Social History Observation Description Date Details (start date - stop date) Never Smoker NA - NA Social History Drugs/Alcohol: Social Info Question Answer Notes Alcohol Screen Did you have a drink containing alcohol in the past year? No Points 0 Interpretation Negative Tobacco Use: Social Info Question Answer Notes Tobacco Use/Smoking Patient is a nonsmoker Additional Details Category Social Info Options Details Miscellaneous: Marital status: Occupation: Self-employed in [email or web address] business Section Notes: Nonsmoker; no sig alcohol From [place] originally Problems Problem Type SNOMED Code ICD Code Onset Dates Problem Status W/U Status Risk Notes Problem Colon cancer screening (747664216) Colon cancer screening (Z12.11) Active confirmed Problem Pre-procedure evaluation check (619782961) Encounter for other preprocedural examination (Z01.818) Active confirmed Problem Diverticular disease of colon (239123152) Diverticulosis of large intestine without perforation or abscess without bleeding (K57.30) Active confirmed Encounters Encounter Location Date Provider Diagnosis [facility] [address], [place] [id number] 04/02/2024 Marco Self Colon cancer hasmukhe lala Z12.11 ; Colon polyps K63.5 ; [...] Insured Coverage Start Date Coverage End Date [facility] [address] [place] [phone] [id number] NADIRA SERRANO Self - patient is the insured Medical (General) History Medical History History ICD Code Kidney stones Hypertension Negative screening colonoscopy > 10 year s ago Denies [place],DM,CVA,Lung disease,renal dise ase Hyperlipidemia Surgical History Surgery Date(Month/Year)
== END 2025-03-02 16:01 | disposition home or self-care (01) ==
LOC: HO.HMCHD 15:29
PROVIDERS: PCP Physician Assistant Medical; Visit Provider Physician Assistant Medical
DX: I10 Essential (primary) hypertension (principal); E78.00 Pure hypercholesterolemia, unspecified; J30.9 Allergic rhinitis, unspecified

== ENCOUNTER → 2025-03-02 15:28 | Outpatient (BNVA) | payer MEDICARE, SELFPAY | PROVIDERS: PCP Internal Medicine; Visit Provider Physician Assistant Medical | DX: I10 Essential (primary) hypertension (principal); E78.00 Pure hypercholesterolemia, unspecified; J30.9 Allergic rhinitis, unspecified; Z13.31 Encounter for screening for depression; Z13.39 Encounter for screening examination for other mental health and behavioral disorders | CPT/HCPCS: 96127; 99212 ==